=== PATIENT | male | born 1935 | race Caucasian/White ===

== ENCOUNTER 2017-04-20 07:36 | Emergency (ER) | payer MEDICARE ==
[2017-04-20 07:51] VITALS: TEMP 98.6
[2017-04-20 08:14] VITALS: O2SAT 95
[2017-04-20] MEDS ORDERED: cloNIDine HCL 0.1 MG TAB PO ONE (08:26)
--- NOTE | 2017-04-20 08:28 | ED.PDOC ---
History of Present Illness - General Chief Complaint: Cardiovascular Problem Stated Complaint: Elevated BP Time Seen by Provider: 04/20/17 07:52 Source: patient, family Exam Limitations: no limitations - History of Present Illness Timing/Duration: 1 week Severity: moderate - He has a hx of hypertension and has been using BP meds for years. Several months ago he stopped taking the Micardis and no his BP is high. He would like to start back on BP meds. He denies any symptoms at this time. Allergies/Adverse Reactions: Allergies NO KNOWN ALLERGY Allergy (Verified 04/20/17 07:51) Home Medications: Ambulatory Orders Telmisartan [Micardis] 80 mg PO DAILY #30 tab 04/20/17 Triamterene & Hydrochlorothiaz [Maxzide 75-50 mg] 1 tab PO DAILY PRN 04/20/17 Review of Systems - Review of Systems Constitutional: States: no symptoms reported EENTM: States: no symptoms reported Respiratory: States: no symptoms reported Cardiology: States: no symptoms reported Gastrointestinal/Abdominal: States: no symptoms reported Genitourinary: States: no symptoms reported Musculoskeletal: States: no symptoms reported Skin: States: no symptoms reported Neurological: States: no symptoms reported Endocrine: States: no symptoms reported All other Systems: Reviewed and Negative, No Change from Baseline Past Medical History (General) - Patient Medical History Hx Stroke: No Hx Congestive Heart Failure: No Hx Hypertension: Yes - BP med d/c'ed in 05/2016 Hx Diabetes: No Hx Cancer: No - Lipomas removed, benign Surgical History: no surgical history - Vaccination History Hx Influenza Vaccination: No Hx Pneumococcal Vaccination: No - Social History Hx Tobacco Use: Yes - Quit approx 1960 Family Medical History - Family History Father Living Status: Age at (years of age): 88 Cause of : old age Physical Exam - Physical Exam General Appearance: Alert, Anxious, No apparent distress Neck: full range of motion, supple Respiratory: chest non-tender, lungs clear, normal breath sounds, no respiratory distress Cardiovascular/Chest: normal peripheral pulses, regular rate, rhythm - 2+ edema of lower legs noted. Peripheral Pulses: radial,right: 2+, radial,left: 2+ Gastrointestinal/Abdominal: normal bowel sounds, non tender, soft, no organomegaly, no pulsatile mass Rectal Exam: deferred Extremity: normal range of motion, pedal edema Neurologic: no motor/sensory deficits, alert, normal mood/affect, oriented x 3 Skin Exam: normal color Lymphatic: no adenopathy Progress - EKG/XRAY/CT EKG: Sinus Comments: HR OF 65, SC INTERVAL OF 228, QRS OF 102, QTC OF 407, AXIS OF -29 DEGREES. Departure - Departure Clinical Impression: Hypertension Qualifiers: Hypertension type: essential hypertension Qualified Code(s): I10 - Essential ( primary) hypertension ICD-10 Supporting Text: HYPERTENSION Time of Disposition: 08:34 Disposition: Discharge to Home or Self Care Condition: Good Departure Forms: ED Discharge - Pt. Copy, Patient Portal Self Enrollment Instructions: DI for Chest Pain Diet: resume usual diet Activity: walking as tolerated Referrals: Patricio Benjamin III, MD [Primary Care Provider] - 1-2 Weeks Prescriptions: Telmisartan [Micardis] 80 mg PO DAILY #30 tab Home Medications: Ambulatory Orders Telmisartan [Micardis] 80 mg PO DAILY #30 tab 04/20/17 Triamterene & Hydrochlorothiaz [Maxzide 75-50 mg] 1 tab PO DAILY PRN 04/20/17
[2017-04-20 09:29] VITALS: BP 152/99
== END 2017-04-20 09:28 | disposition home or self-care (01) ==
LOC: ER 07:36
DX: I10 Essential (primary) hypertension (principal); Z87.891 Personal history of nicotine dependence

== ENCOUNTER 2018-09-02 05:35 | Day surgery (SDC) | payer MEDICARE ==
[2018-09-02] MEDS ORDERED: MIDAZOLAM INJ 2 MG/2 ML VIAL ONE (10:39)
[2018-09-02] MEDS ORDERED: TROP 1%/CYCLOPEN 1%/PHENYL 2% DROPS ONE (11:05)
[2018-09-02] MEDS ORDERED: MOXIFLOXACIN HCL (OPHTH) 1 DROP DROPS ONE (11:05)
[2018-09-02] MEDS ORDERED: PROPARACAINE 0.5% OPHTH SOL 15 ML BTTL ONE (11:05)
[2018-09-02] MEDS ORDERED: PROPARACAINE 0.5% OPHTH SOL 15 ML BTTL LEFT_EYE ONE (12:10)
[2018-09-02] MEDS ORDERED: LIDOCAINE 1% 2 ML VIAL INJ ONE (12:21)
[2018-09-02] MEDS ORDERED: MOXIFLOXACIN HCL (OPHTH) 1 DROP DROPS LEFT_EYE ONE ×3 (12:27→12:36)
[2018-09-02] MEDS ORDERED: BRIMONIDINE 0.2% OPHTH DROPS LEFT_EYE ONE ×2 (12:28→12:37)
[2018-09-02] MEDS ORDERED: TOBRAMYCIN SULF 0.3 % OPHT SOL 1 DROP LEFT_EYE ONE ×2 (12:28→12:37)
[2018-09-02] MEDS ORDERED: DEXAMETHASONE 0.1% OPHTH SOL 1 DROP LEFT_EYE ONE ×2 (12:28→12:37)
== END 2018-09-02 13:13 | disposition home or self-care (01) ==
LOC: AMB 05:35
PROVIDERS: ATTEND Ophthalmology
DX: H25.12 Age-related nuclear cataract, left eye (principal); I10 Essential (primary) hypertension
CPT/HCPCS: 00142; 66984; 85810; J2250

== ENCOUNTER → 2018-09-10 | Outpatient (CLI) | payer MEDICARE | LOC: GMAL 11:29 | PROVIDERS: ATTEND Family Medicine | DX: D51.3 Other dietary vitamin B12 deficiency anemia (principal); R53.81 Other malaise; E55.9 Vitamin D deficiency, unspecified; I10 Essential (primary) hypertension; E78.49 Other hyperlipidemia ==

== ENCOUNTER → 2018-12-11 | Outpatient (CLI) | payer MEDICARE | LOC: GMAL 11:06 | PROVIDERS: ATTEND Family Medicine | DX: E55.9 Vitamin D deficiency, unspecified (principal); I10 Essential (primary) hypertension; E78.49 Other hyperlipidemia ==

== ENCOUNTER → 2019-12-24 | Outpatient (CLI) | payer MEDICARE | END | disposition home or self-care (01) | LOC: GMAL 14:36 | PROVIDERS: ATTEND Family Medicine | DX: D51.3 Other dietary vitamin B12 deficiency anemia (principal); R53.81 Other malaise; E55.9 Vitamin D deficiency, unspecified ==